=== PATIENT | female | born 1945 | race Caucasian/White ===

== ENCOUNTER 2022-10-04 15:30 | Outpatient (REF) | payer OTHER, SELFPAY ==
[2022-10-04 16:07] LABS: Basophils Absolute Auto 0.1 X10*3/uL (0.0-0.2); Eosinophils Absolute Auto 0.1 X10*3/uL (0.0-0.4); Eosinophils Percent Auto 2.3 % (0-4); Hematocrit 36.7 % (37.0-47.0); Hemoglobin 12.1 g/dl (12.0-16.0); Imm Gran Abs Auto 0.02 X10*3/uL (0.00-0.03); Imm Gran Pct Auto 0.3 % (0.0-0.4); Lymphocytes Absolute Auto 1.3 X10*3/uL (1.2-4.9); Lymphocytes Percent Auto 21.9 % (20-40); MANUAL DIFF FLAG NO; Mean Corpuscular Hemoglobin 30.6 pg (27.0-33.0); Mean Corpuscular Volume 92.9 fL (80.0-98.0); Mean Platelet Volume 10.3 fL (9.4-12.3); Monocytes Absolute Auto 0.4 X10*3/uL (0.1-1.2); Neutrophils Absolute Auto 3.9 x10*3/uL (2.0-8.3); Neutrophils Percent Auto 67.5 % (45-73); Platelet Count 199 X10*3/uL (160-400); Red Blood Count 3.95 X10*6/uL (4.20-5.50); Red Cell Distribution Width 12.6 % (11.0-16.0); White Blood Count 5.7 X10*3/uL (4.8-10.8)
[2022-10-04 16:44] LABS: Erythrocyte Sedimentation Rate 12 MM/HR (0-20)
[2022-10-04 16:59] LABS: Appearance Urine Clear; Color Urine Yellow; Glucose Urine UA Negative (Negative); Leukocyte Esterase Urine Trace (Negative); Nitrite Urine Negative (Negative); Specific Gravity - Urine 1.015 (1.005-1.025); UMIC TRIGGER UA YES; Urine Blood Trace (Negative); Urine Ketones Negative (Negative); Urine Protein Negative (Neg-Trace)
[2022-10-04 17:02] LABS: Bacteria Urine None Seen (None Seen); Hyaline Casts Urine 0-2 /LPF (0-2); Squamous Epithelial Cell Urine 0-2 /HPF (0-2); WBC Urine 0-5 /HPF (0-5)
[2022-10-04 17:33] LABS: Creatinine Urine 135.77 mg/dL; Total Protein Urine Random < 7 mg/dL (<12)
[2022-10-04 20:42] LABS: C Reactive Protein 0.21 mg/dL (< or = 0.50)
[2022-10-04 20:44] LABS: Alanine Aminotransferase 15 U/L (0-31); Anion Gap 18 (12-20); Aspartate Amino Transferase 22 U/L (5-31); Bilirubin Total 0.6 mg/dL (0.0-1.0); Blood Urea Nitrogen 22 mg/dL (9-16); Calcium 9.5 mg/dL (8.4-10.2); Carbon Dioxide 21 mmol/L (22-29); Chloride 105 mmol/L (96-108); Estimated Glomerular Filt Rate 57; Glucose Random 95 mg/dL (60-115); Potassium 4.5 mmol/L (3.3-5.1); Sodium 139 mmol/L (135-145); Total Protein 6.5 g/dL (6.5-8.0)
[2022-10-04 20:45] LABS: Albumin Level 4.2 g/dL (3.5-5.0); Alkaline Phosphatase 107 U/L (39-117)
[2022-10-04 21:41] LABS: TSH reflex Free T4 0.99 uIU/mL (0.32-4.0)
[2022-10-05 12:32] LABS: Antibody to SS-A Antigen <1.0 NEG AI (<1.0 NEG); Antibody to SS-B Antigen <1.0 NEG AI (<1.0 NEG); SM/Ribonucleoprotein Ab <1.0 NEG AI (<1.0 NEG); Scleroderma 70 Antibody <1.0 NEG AI (<1.0 NEG); Smith Protein <1.0 NEG AI (<1.0 NEG)
[2022-10-05 18:57] LABS: Complement C3 125 mg/dL (83-193)
[2022-10-05 22:42] LABS: Anti-Centromere B Antibodies <1.0 NEG AI (<1.0 NEG)
[2022-10-06 13:16] LABS: Anti Nuclear Antibody Screen NEGATIVE (NEGATIVE)
[2022-10-06 14:32] LABS: Prot Elec - Albumin 4.3 g/dL (3.8-4.8); Prot Elec - Alpha1 0.2 g/dL (0.2-0.3); Prot Elec - Alpha2 0.5 g/dL (0.5-0.9); Prot Elec - Beta 1 0.4 g/dL (0.4-0.6); Prot Elec - Beta 2 0.3 g/dL (0.2-0.5); Prot Elec - Gamma 0.7 g/dL (0.8-1.7); Prot Elec - Total Protein 6.4 g/dL (6.1-8.1)
[2022-10-07 12:31] LABS: IgA 222 mg/dL (70-320); IgG 854 mg/dL (600-1540); IgM 19 mg/dL (50-300)
[2022-10-07 15:52] LABS: Cardiolipin IgG Ab <2.0 GPL-U/mL; Cardiolipin IgM Ab <2.0 MPL-U/mL
[2022-10-08 05:02] LABS: PTT (LAC) Screen 30 sec (<=40)
[2022-10-08 22:08] LABS: Beta-2 Glycoprotein IgA <2.0 U/mL (<20.0); Beta-2 Glycoprotein IgG <2.0 U/mL (<20.0); Beta-2 Glycoprotein IgM <2.0 U/mL (<20.0)
[2022-10-10 15:57] LABS: DNAds, Crithidia Antibody Negative (Negative)
== END 2022-10-04 15:31 | disposition home or self-care (01) ==
LOC: HO.LAB 15:30
PROVIDERS: PCP Internal Medicine; Visit Provider Student in an Organized Health Care Education/Training Program
DX: I73.00 Raynaud's syndrome without gangrene (principal); M35.9 Systemic involvement of connective tissue, unspecified; K21.9 Gastro-esophageal reflux disease without esophagitis; K22.70 Barrett's esophagus without dysplasia; Z86.73 Personal history of transient ischemic attack (TIA), and cerebral infarction without residual deficits; Z86.711 Personal history of pulmonary embolism; Z79.899 Other long term (current) drug therapy
CPT/HCPCS: 36415; 80053; 81001; 82784; 84156; 84165; 84443; 85025; 85597; 85613; 85652; 85730; 86038; 86039; 86140; 86146; 86147; 86160; 86235; 86255; 86334; 99202

== ENCOUNTER 2023-12-26 12:52 | Outpatient (AMB) | payer OTHER, SELFPAY ==
--- NOTE | 2023-12-26 13:04 | MHC.OFFVIS ---
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 Allergies torsemide Adverse Reaction (Severe, Verified 10/04/22 14:44) Gastrointestinal Upset fenofibrate Adverse Reaction (Unknown, Verified 10/04/22 14:24) Unknown [id number]-[id number] Reductase Inhibitor Adverse Reaction (Unknown, Verified 10/04/22 14:38) Muscle cramps PFSH Medical History Aortic stenosis Trammell's esophagus Carpal tunnel syndrome COPD (chronic obstructive pulmonary disease) CVA (cerebral vascular accident) Degenerative arthritis of lumbar spine Dyslipidemia GERD (gastroesophageal reflux disease) Heart murmur Hx of breast cancer Meningioma Osteopenia Pulmonary embolism Trigger finger Surgical History Hx of coronary artery bypass graft S/P aortic valve replacement with bioprosthetic valve Family History Father Coronary artery disease Myocardial infarction Cancer Maternal Aunt Breast cancer Pancreatic cancer Mother Myocardial infarction Social History Household Members: Spouse Household Members Other:: Grandchildren Alcohol intake: current Alcohol intake frequency: a few times a month Alcohol type: wine Patient Tobacco Use Status: Former Tobacco user Current occupational status: retired Current occupation: [employer] developer & Plan Assessment & Plan (1) Lumbar disc herniation: Code(s): M51.26 - Other intervertebral disc displacement, lumbar region (2) Lumbar stenosis: Code(s): M48.061 - Spinal stenosis, lumbar region without neurogenic claudication Plan Dear Ezra, Thank you for referring Mrs Granados to our office today. 78-year-old female with history of vasculopathy, heart disease, NE, coronary bypass and valve replacement presents to the office today for evaluation progressive left-sided leg pain that started about 2 years ago. She does not have any back pain. It is present for the better part of the day even at rest but gets worse when she stands and walks. It starts around the lateral aspect of her left hip radiates into her left anterior thigh and goes down into her calf. There is no tingling or numbness associated with it. It is an intense pain which has been almost unbearable to live with. It does not let her sleep at night. She went through physical therapy and [id number] medication trials with no significant improvement. She comes to us today for evaluation after MRI shows herniated disc at L4-5 with severe stenosis. She has not have any cauda equina symptoms. PMH: She has an extensive medical history. She has a history of a stroke in her memory is poor so most of what I am able to glean from her medical history was obtained from the [facility] chart in [facility]. This record shows he has a history of coronary disease, status post coronary bypass and aortic valve replacement. She can not remember who the name of her keying machine operator is but believes that they work at [facility]. She is followed regularly there according to her . She has history of CVA, left carotid endarterectomy, pulmonary embolus, heart failure, high cholesterol, esophageal spasm, tracheomalacia, Trammell's esophagus, diverticulosis, meningioma, acute kidney injury, carpal tunnel syndrome, sleep apnea , trigger finger, osteopenia, osteoarthritis Social hx: She quit smoking many years ago Medications: Obtained from the [facility] record, history of aspirin, Plavix, diclofenac gel, nitroglycerin, Lasix, valsartan, ipratropium, Lipitor, multivitamin Allergies: Codeine, fluvastatin, Lescol, Lipitor, Pravachol, Tricor, Zocor Physical exam: Very nice elderly female no acute distress, she has positive straight leg raise at about 25 degrees, she has mild strength loss in the left iliopsoas but quadriceps and distal strength in the ankle is full bilaterally. Reflexes diminished bilaterally at the Achilles and the patella. She has an antalgic gait. Imaging review: Lumbar MRI done at [facility] in October 2023 shows multilevel degenerative disc disease, but the most significant finding is that there appears to be a foraminal disc herniation in the L4 foramen on the left with superimposed lateral recess stenosis in the central spinal canal. Impression: 78-year-old female, complicated medical history including coronary disease, stroke, high cholesterol presents for evaluation what sounds like a combination of an L4/L5 radiculopathy in the left leg with what looks like a herniated disc and left L4 foramen and superimposed central stenosis at L4-5 primarily in the lateral recess. She is tried conservative treatment without any improvement. Typically this is something Dr. Pennings would offer her diskectomy and decompression the L4-5 level, possibly an extraforaminal approach for the disc herniation. I will review the films with him, however before we can proceed I told the patient she would need to contact her keying machine operator and get a some kind of clearance note so we can understand better the risks associated with back surgery. We do not expect a significant amount of blood loss, and typically the procedure would take about an hour or so to do. I will send a copy of this note to the patient's primary care physician so there in the loop as well. Once I hear back from the patient, I will coordinate a plan for her. She is aware she would need to come off her Plavix for 10 days before surgery and her baby aspirin 1 week before surgery. Thank you for allowing us to care for your patient. The total time spent with this visit with this patient was 45 minutes reviewing history, physical exam, lumbar imaging review, and implementation of treatment plan or further diagnostic testing Noe Valdes MD,PhD [facility] Coding Level of Care Code New Pt Level 4 (61528) Diagnoses Lumbar disc herniation M51.26 Lumbar stenosis M48.061
== END 2023-12-26 13:26 | disposition home or self-care (01) ==
PROVIDERS: PCP Internal Medicine; Referring Provider Internal Medicine; Visit Provider Physician Assistant
DX: M51.26 Other intervertebral disc displacement, lumbar region (principal); M48.061 Spinal stenosis, lumbar region without neurogenic claudication
CPT/HCPCS: 99204; 99214

== ENCOUNTER → 2023-12-26 12:52 | Outpatient (BNVA) | payer OTHER, SELFPAY | PROVIDERS: PCP Internal Medicine; Visit Provider Physician Assistant | DX: M51.26 Other intervertebral disc displacement, lumbar region (principal); M48.061 Spinal stenosis, lumbar region without neurogenic claudication | CPT/HCPCS: 99202 ==